=== PATIENT | male | born 1980 | race African-American/Black ===

== ENCOUNTER 2018-10-14 09:56 | Emergency (ER) | payer SELFPAY ==
--- NOTE | 2018-10-14 11:19 | RAD ---
EXAM: Two views chest PROVIDED CLINICAL HISTORY: Cough and generalized body aches for one month. COMPARISON: 08/29/2018 FINDINGS: Cardiac silhouette and pulmonary vasculature are within normal limits. The lungs are clear. The osse ous structures have a normal appearance. Punctate metallic densities/foreign bodies again overlie the subcutaneous soft tissues left lateral upper abdomen as well as right upper back soft tissues. IMPRESSION: No acute cardiopulmonary process.
== END 2018-10-14 13:23 | disposition home or self-care (01) ==
LOC: ERS 09:56
DX: J20.9 Acute bronchitis, unspecified (principal); J30.9 Allergic rhinitis, unspecified; I10 Essential (primary) hypertension; F17.210 Nicotine dependence, cigarettes, uncomplicated; Z79.82 Long term (current) use of aspirin
CPT/HCPCS: 71046; 99407

== ENCOUNTER 2019-06-15 20:50 | Emergency (ER) | payer SELFPAY | END 2019-06-15 21:56 | disposition home or self-care (01) | LOC: ERS 20:50 | DX: F15.10 Other stimulant abuse, uncomplicated (principal); F17.210 Nicotine dependence, cigarettes, uncomplicated; F32.9 Major depressive disorder, single episode, unspecified; I10 Essential (primary) hypertension; I25.2 Old myocardial infarction | CPT/HCPCS: 99281 ==